=== PATIENT | male | born 1975 | race African-American/Black ===

== ENCOUNTER 2018-06-02 03:08 | Emergency (ER) | payer OTHER ==
[~2018-06-02] VITALS: Ht 175.3 cm; Wt 88.2 kg
[2018-06-02 03:11] VITALS: BP 126/86
[2018-06-02] MEDS ORDERED: NAPR-58 PO (03:17)
[2018-06-02] MEDS ORDERED: KETOROLAC TROMETHAMINE 60 MG/2 ML VIAL IM ONE (05:00)
[2018-06-02] MEDS ORDERED: PENICILLIN V POTASSIUM 500 MG TABLET PO ONE (05:00)
== END 2018-06-02 06:05 | disposition home or self-care (01) ==
LOC: EMS 03:09
DX: J03.90 Acute tonsillitis, unspecified (principal); M79.1 Myalgia; J02.9 Acute pharyngitis, unspecified; Z91.013 Allergy to seafood; Z88.8 Allergy status to other drugs, medicaments and biological substances
CPT/HCPCS: 87430; 96372; 99283; J1885